=== PATIENT | male | born 1960 | race Caucasian/White ===

== ENCOUNTER 2018-02-02 15:38 | Observation (INO) ==
[2018-02-02] MEDS ORDERED: methylPREDNISolone 125 MG/2 ML VIAL IVP ONE (15:43)
[2018-02-02] MEDS ORDERED: Ipratropium/Albuterol Neb 3 ML IH ONE (15:43)
--- NOTE | 2018-02-02 15:45 | Emergency Department Note ---
Disposition Clinical Impression: Acute exacerbation of chronic obstructive airways disease Disposition: Admitted As Inpatient Condition: Fair Time of Disposition: 16:23 (Dr Oden) SOB HPI - General Chief Complaint: ED Shortness of Breath/Dyspnea Stated Complaint: Shortness of breath Time Seen by Provider: 02/02/18 15:43 Source: patient Mode of arrival: ambulatory Limitations: physical limitation Nursing Notes Reviewed: Yes Vital Signs Reviewed: Yes - History of Present Illness Pt Subjective Complaint: shortness of breath Onset (ago): day(s) (2) Context: recent illness (Upper Respiratory infection for the past week.) Severity: severe Consistency/Duration: gradually worsening Improves with: rest Worsens with: exertion, coughing Known history of: COPD Associated symptoms: Reports: cough, sputum production. Denies: chest pain, pain with inspiration, fever, wheezing, orthopnea, lower extremity pain, polyuria, polydipsia, parasthesias, palpitations, hemoptysis, diaphoresis, nausea/vomiting, syncope, abdominal pain, rash, sense of impending doom Treatment prior to arrival: oxygen, bronchodilator (Albuterol inhaler) Cough present: Yes Cough Description: Involuntary Cough Frequency: Intermittent Sputum production: Yes Sputum Amount: Scant Sputum Color: White, Cream - Related Data Home Medications Medication Instructions Recorded Confirmed Albuterol Sulfate [Albuterol 2 puff IH Q6H PRN 08/15/16 02/02/18 Inhaler] Lisinopril-HCTZ 20-12.5 [Prinzide 1 each PO QAM 08/15/16 02/02/18 20-12.5] Fluticasone/Vilanterol [Breo 1 each IH AD 02/02/18 02/02/18 Ellipta 100-25 Mcg INH] Ibuprofen [Motrin] 800 mg PO Q8HR 02/02/18 02/02/18 Allergies Allergy/AdvReac Type Severity Reaction Status Date / Time No Known Allergies Allergy Verified 02/02/18 15:39 All systems ED: reviewed and negative except as stated. Review of Systems: As Per HPI Past Medical History - Past Medical History Medical history: Reports: COPD, hypertension Psychiatric history: Reports: no psych history - Social History Smoking Status: Current every day smoker Smokeless Tobacco Status: No Alcohol use: Reports: occasionally Drug use: Reports: none Physical Exam - General Limitations: no limitations General appearance: alert, in no apparent distress - Head Head exam: atraumatic, normocephalic, normal inspection - Eye Eye exam: Present: normal appearance, PERRL, EOMI - ENT ENT exam: normal exam, normal oropharynx, mucous membranes moist - Neck Neck exam: Present: normal inspection, full ROM, trachea midline - Chest Chest inspection: Present: normal inspection, symmetric chest wall rise - Respiratory Respiratory exam: Present: respiratory distress, prolonged expiratory phase - Expanded Respiratory Exam Location: rales: Lower, Right, Left, decreased breath sounds: Left, Right, Upper , Lower - Cardiovascular Cardiovascular exam: Present: normal rhythm, tachycardia - Abdominal Exam Abdominal exam: Present: soft, Non-Tender. Absent: tenderness, distention, guarding, rebound, rigidity - Extremities Exam Extremities exam: Present: normal inspection, full ROM. Absent: tenderness, pedal edema - Neurological Exam Neurological exam: Present: alert, oriented X3, CN II-XII intact, normal gait - Psychiatric Psychiatric exam: Present: normal affect, normal mood - Skin Skin exam: Present: warm, dry, intact, normal color Course - Reevaluation(s) Reevaluation #1: Improved work of breathing but still hypoxic without oxygen supplementation. Diagnostic and laboratory results were nonspecific. Time: 16:23 Vital Signs Temperature 99.5 F 02/02/18 15:40 Pulse Rate 127 02/02/18 15:40 Respiratory Rate 26 02/02/18 15:40 Blood Pressure 182/121 02/02/18 15:40 O2 Sat by Pulse Oximetry 71 02/02/18 15:40 Temperature 98.2 F 02/02/18 17:03 Pulse Rate 111 02/02/18 17:03 Respiratory Rate 16 02/02/18 17:03 Blood Pressure 138/83 02/02/18 17:03 O2 Sat by Pulse Oximetry 91 02/02/18 17:03 Oxygen Delivery Oxygen Delivery Room Air Shortness of Breath/Dyspnea - Differential Diagnosis Likely: acute exacerbation of chronic obstructive airways disease - Medical Records Medical records reviewed: Yes I reviewed the patient's medical records. - Lab Data Lab results reviewed: Yes I reviewed the patient's lab results. Result diagrams: 02/02/18 15:45 02/02/18 15:45 Lab Results 02/02/18 02/02/18 02/02/18 Range/Units 15:45 15:45 15:45 WBC 8.6 (4.3-11.1) K/mcL RBC 4.81 (4.19-5.50) M/mcL Hgb 15.6 (12.9-16.9) g/dL Hct 44.4 (37.5-50.1) % MCV 92.3 (83.0-100.0) fL MCH 32.4 (28.0-33.3) pg MCHC 35.1 (31.6-35.5) g/dL RDW 12.9 (11.5-14.5) % Plt Count 267 (140-400) K/mcL MPV 9.6 (9.4-12.4) fL Immature Gran % 0.2 (0-4) % Seg Neutrophils % 58.3 % Lymphocytes % 29.1 % Monocytes % 10.0 % Eosinophils % 1.7 % Basophils % 0.7 % Neutrophils # 5.0 (1.6-8.9) K/mcL Lymphocytes # 2.5 (0.6-4.6) K/mcL Monocytes # 0.9 (0.0-1.3) K/mcL Eosinophils # 0.2 (0.0-0.6) K/mcL Basophils # 0.1 (0.0-0.2) K/mcL Sodium 133 L (136-145) mEq/L Potassium 4.0 (3.5-5.1) mEq/L Chloride 100 (98-107) mEq/L Carbon Dioxide 23 (23-29) mEq/L BUN 10 (6-20) mg/dL Creatinine 0.82 (0.70-1.30) mg/dL Est GFR ( Amer) > 60 (> 60) Est GFR (Non-Af Amer) > 60 (> 60) BUN/Creatinine Ratio 12 (6-26) Glucose 85 (70-105) mg/dL Calculated Osmolality 274 L (280-300) Calcium 9.2 (8.6-10.3) mg/dL Troponin I < 0.03 (< 0.04) ng/mL B-Natriuretic Peptide 56 (Less than 100) pg/mL - Radiology Data Radiology results reviewed: Yes I reviewed the patient's radiology results. Chest X-Ray 02/02/18 15:43 IMPRESSION: No evidence for acute cardiopulmonary process. D/ / Brandon Figueroa MD / Brandon Figueroa MD Interpreting Provider: Brandon Figueroa MD - EKG Data EKG attestation: Yes I reviewed and interpreted this EKG. Rate: Reports: tachycardia Rhythm: Reports: NSR [place]/QRS: Reports: normal Interpretation: Reports: normal EKG, nonspecific ST-T wave changes Critical Care Time Critical Care Time: Yes Total Critical Care Time: 30 Attestation: Critical care performed: Time is exclusive of separately billable procedures. Time includes: direct patient care, patient reassessment, coordination of patient care, interpretation of data (laboratory data, radiology data, and respiratory data), review of patient's medical records, medical consultation and documentation of patient care. Procedures included in critical care time: Procedures excluded from critical care time:
[2018-02-02] MEDS ORDERED: Benzonatate 100 MG CAPSULE PO STA (15:46)
[2018-02-02 15:54] LABS: Basophils # 0.1 K/mcL (0.0-0.2); Basophils % 0.7 %; Eosinophils # 0.2 K/mcL (0.0-0.6); Eosinophils % 1.7 %; Hematocrit 44.4 % (37.5-50.1); Hemoglobin 15.6 g/dL (12.9-16.9); Immature Granulocytes % 0.2 % (0-4); Lymphocytes # 2.5 K/mcL (0.6-4.6); Lymphocytes % 29.1 %; Mean Corpuscular HGB Conc 35.1 g/dL (31.6-35.5); Mean Corpuscular Hemoglobin 32.4 pg (28.0-33.3); Mean Corpuscular Volume 92.3 fL (83.0-100.0); Mean Platelet Volume 9.6 fL (9.4-12.4); Monocytes # 0.9 K/mcL (0.0-1.3); Platelet Count 267 K/mcL (140-400); Red Blood Count 4.81 M/mcL (4.19-5.50); Red Cell Distribution Width 12.9 % (11.5-14.5); Segmented Neutrophils % 58.3 %
[2018-02-02 16:14] LABS: BUN/Creatinine Ratio 12 (6-26); Blood Urea Nitrogen 10 mg/dL (6-20); Calcium 9.2 mg/dL (8.6-10.3); Carbon Dioxide 23 mEq/L (23-29); Chloride 100 mEq/L (98-107); Glucose 85 mg/dL (70-105); Osmolality,Calculated 274 (280-300); Sodium 133 mEq/L (136-145); eGFR For African Americans > 60 (> 60); eGFR For Non-African Americans > 60 (> 60)
[2018-02-02 16:15] LABS: Troponin I < 0.03 ng/mL (< 0.04)
[2018-02-02] MEDS ORDERED: Acetaminophen 325 MG TABLET PO PRN (16:50)
[2018-02-02] MEDS ORDERED: Ketorolac 30 MG/ML VIAL IVP PRN (16:50)
[2018-02-02] MEDS ORDERED: Naloxone 0.4 MG/ML INJ IVP PRN (16:50)
[2018-02-02] MEDS ORDERED: *HR* OxyCODONE Immed Rel 5 MG TABLET PO PRN (16:50)
[2018-02-02] MEDS ORDERED: Ondansetron 4 MG/2 ML VIAL IVP PRN (16:50)
[2018-02-02] MEDS ORDERED: Melatonin 3 MG TABLET PO PRN (19:34)
[2018-02-02] MEDS: methylPREDNISolone 125 MG/2 ML VIAL IVP SCH (23:54)
[2018-02-03] MEDS: methylPREDNISolone 125 MG/2 ML VIAL IVP SCH (08:22)
[2018-02-03] MEDS ORDERED: Lisinopril 20 MG TABLET PO SCH (09:00)
[2018-02-03] MEDS ORDERED: hydroCHLOROthiazide 25 MG TABLET PO SCH (09:00)
[2018-02-03] MEDS ORDERED: FLUTICASONE FUROATE IH SCH (10:00)
[2018-02-03] MEDS ORDERED: VILANTEROL IH SCH (10:00)
[2018-02-03 10:51] VITALS: BP 144/78
--- NOTE | 2018-02-03 11:59 | Internal Med History&Physical ---
Date of Encounter: 02/03/18 Time of Encounter: 11:25 Assessment and Plan (1) Acute exacerbation of chronic obstructive airways disease Current visit: Yes Status: Acute He reports he has significantly improved since admission and wishes to be discharged home. (2) Hypertension Current visit: Yes Status: Chronic Blood pressures have shown significant fluctuation since admission. Qualifiers: Hypertension type: essential hypertension Qualified Code(s): I10 - Essential (primary) hypertension Internal Medicine - H&P: HPI Chief complaint: Cough and dyspnea Admitted From: Emergency Dept Plans for Post Hospital Care: Home History of present illness: Mr. Moreno is a 57 year old male who came to emergency room stating he had one week history of increasing cough with dyspnea. The cough was nonproductive. He was evaluated in emergency room and felt to have exacerbation of COPD. He was admitted to [facility] floor for ongoing care needs. His respiratory history is significant for having smoked since age 11 up to 3-1/ 2 packs per day. He states he had PFTs approximately 2014 and was told he had COPD with chronic bronchitis. He does not use home oxygen. He has not been tested for sleep apnea. Past Med Surg Social Fam HX - Past Medical History Medical history: COPD, hypertension Psychiatric history: no psych history - Social History Smoking Status: Current every day smoker Smokeless Tobacco Status: No Alcohol use: occasionally Drug use: none Internal Medicine - H&P: Meds Albuterol Sulfate [Albuterol Inhaler] 2 puff IH Q6H PRN 08/15/16 [History] Lisinopril-HCTZ 20-12.5 [Prinzide 20-12.5] 1 each PO QAM 08/15/16 [History] Fluticasone/Vilanterol [Breo Ellipta 100-25 Mcg INH] 1 each IH AD 02/02/18 [ History] Ibuprofen [Motrin] 800 mg PO Q8HR 02/02/18 [History] Melatonin [Melatin] 3 mg PO HS 02/02/18 [History] 3 Allergy/AdvReac Type Severity Reaction Status Date / Time No Known Allergies Allergy Verified 02/02/18 15:39 All Systems PM: A 10-system review of systems was performed and is negative for pertinent findings except as documented above in the HPI. Review of systems: Gen.: He states his weight has been stable the past few months Cardiovascular: He has history of hypertension but denies heart failure DVT or pulmonary embolus. He is uncertain if he has had PA. Respiratory: As per history of present illness GI: He reports peptic ulcer disease with a bleeding ulcer in the past. He denies disorders of his liver gallbladder or exocrine pancreas : He denies hematuria dysuria or kidney stones Neurologic: He denies large distribution strokes or seizures. Endocrine: He denies diabetes thyroid disease or hyperlipidemia Hematology/oncology: Denies blood disorders cancers or anemia Psychiatric: He denies anxiety depression or other mental health issues [place] skeletal: He has DJD. He had right ankle fracture several years ago with surgical repair. He denies other bone joint or muscle disorders. - Constitutional Vitals: Temp Pulse Resp BP Pulse Ox 98.4 F 110 18 144/78 96 02/03/18 10:00 02/03/18 10:00 02/03/18 10:00 02/03/18 10:02/03/18 10:00 Exam: Gen.: He is a well-developed well-nourished male who is resting in bed who appears in no acute distress. He is wearing oxygen by mask. HEENT: Head is atraumatic and normocephalic. Eyes: EOMI. There is no scleral icterus. Mouth: Mucosa is moist. Neck: Supple and nontender. There is no thyromegaly or adenopathy. Heart: Regular without murmurs gallops or ectopics Lungs: No wheezes or crackles are heard. Abdomen: Soft and nontender. No masses or guarding are noted. Extremities: There is no cyanosis edema or clubbing noted. Dorsalis pedis and posterior tibial pulses are 1-2 over 2 bilaterally. Neurologic: Mental status: He is talkative and a good historian. Cranial nerves : Smile is symmetric. Forehead wrinkles bilaterally. Tongue protrudes midline. EOMI. Motor: There is no pronator drift. Cerebellar: Finger to nose is intact bilaterally. Skin: Warm and dry Internal Med - H&P Results - Labs CBC & Chem 7: 02/02/18 15:45 02/02/18 15:45
--- NOTE | 2018-02-03 12:10 | Discharge Summary ---
Date of Encounter: 02/03/18 Time of Encounter: 11:25 - Discharge Diagnosis (1) Acute exacerbation of chronic obstructive airways disease Priority: Primary Status: Acute (2) Hypertension Priority: Secondary Status: Chronic Qualifiers: Hypertension type: essential hypertension Qualified Code(s): I10 - Essential (primary) hypertension Hospital course: Mr. Moreno is a 57 year old male who came to emergency room stating he had one week history of increasing cough with dyspnea. The cough was nonproductive. He was evaluated in emergency room and felt to have exacerbation of COPD. He was admitted to [facility] for ongoing care needs. Initial orders were written by the emergency room physician. I saw him on February 03 and performed a history physical and discharge. He was started on IV Solu- Medrol through emergency room. When I saw him he stated he was significantly improved and near his baseline breathing. He wished to be discharged home which I felt was reasonable. He will receive a prescription for oral prednisone for 3 additional days. He will not receive antibiotics at this time since there is no clear evidence of infection. He will have a 6 minute walk prior to discharge to evaluate for home oxygen needs. I encouraged him strongly become a nonsmoker. He will follow with his PCP Madalyn Ayala CNP within 1 week. - Time Spent with Patient Total time spent providing and/or coordinating discharge services: - Discharge Medications Prescriptions: predniSONE [PredniSONE] 10 mg PO BIDWM #6 tablet Home Medications: Albuterol Sulfate [Albuterol Inhaler] 2 puff IH Q6H PRN 08/15/16 [History] Lisinopril-HCTZ 20-12.5 [Prinzide 20-12.5] 1 each PO QAM 08/15/16 [History] Fluticasone/Vilanterol [Breo Ellipta 100-25 Mcg INH] 1 each IH AD 02/02/18 [ History] Ibuprofen [Motrin] 800 mg PO Q8HR 02/02/18 [History] Melatonin [Melatin] 3 mg PO HS 02/02/18 [History] predniSONE [PredniSONE] 10 mg PO BIDWM #6 tablet 02/03/18 [Rx] Allergies/Adverse Reactions: 3 Allergy/AdvReac Type Severity Reaction Status Date / Time No Known Allergies Allergy Verified 02/02/18 15:39 Date of admission: 02/02/18 16:40 Primary care physician: Madalyn Ayala CNP - Constitutional Vitals: Temp Pulse Resp BP Pulse Ox 98.4 F 110 18 144/78 96 02/03/18 10:00 02/03/18 10:00 02/03/18 10:00 02/03/18 10:00 02/03/18 10:00 - Patient Status Disposition: Home, Self-Care Condition: Fair Overall status at discharge: patient is progressing back to baseline - Discharge Instructions Follow Up With: Madalyn Ayala CNP [Primary Care Provider] - 1 week - Diet and Activity Activity: resume usual activities as tolerated Diet: advance to your usual diet
--- NOTE | 2018-02-04 16:37 | Electrocardiograph Report ---
[address] [address] Test Date: 2018-02-02 Pat Name: Darvin Moreno Department: [id number] Room: [facility] Gender: M Hospital Product Specialist: [id number] : 1960 Requested By: Rashaun Fernandez Order Number: [id number] Reading MD: Pat Haynes Measurements Intervals [place] Rate: 119 P: 79 [place]: 148 QRS: 48 QRSD: 81 T: 73 QT: 287 QTc: 358 Interpretive Statements SINUS TACHYCARDIA RIGHT ATRIAL ENLARGEMENT POSSIBLE LEFT ATRIAL ENLARGEMENT Electronically Signed On 02-04-2018 16:36:29 EDT by Pat Haynes
== END 2018-02-03 15:05 | disposition home or self-care (01) ==
LOC: INPPIK 15:38 → EMEROOPIK 15:38 → INPPIK 16:48
PROVIDERS: ADMIT Internal Medicine; ATTEND Internal Medicine